=== PATIENT | female | born 1955 | race Caucasian/White ===

== ENCOUNTER 2016-06-04 06:52 | Day surgery (SDC) | payer OTHER ==
--- NOTE | 2016-06-03 18:39 | PREOPHP ---
DATE OF ADMISSION: 06/04/2016 REASON FOR HISTORY OF PRESENT ILLNESS: A 60-year-old patient is going to be admitted for diagnosti c arthroscopy of right shoulder, examination under general anesthesia, cuff repair, possible SLAP an d Bankart repair. This patient has been experiencing right shoulder pain for quite a while. Conservative treatment re sulted in limited benefit to the patient. The patient has requested surgical intervention. PAST MEDICAL HISTORY: Negative. SOCIAL HISTORY: Negative. FAMILY HISTORY: Negative. Patient's medication has been Sulindac, folic acid, and D3. Patient was also given [place] 5/325 for postoperative. PHYSICAL EXAMINATION: VITAL SIGNS: Height is 5 feet 1 inch, weighing 160 pounds. SKIN: Within normal limits. ENT: PERRLA. HEAD AND NECK: Normocephalic. Trachea midline. Bilateral symmetrical carotid pulses. No mass, no bruit, no lymphadenopathy. CARDIOVASCULAR: Normal sinus rhythm. S1, S2 normal. No murmur. No JVD. No peripheral edema. LUNGS: Clear. ABDOMEN: Slightly protuberant. No organomegaly. No mass. Bowel sounds present. GENITOURINARY: Rectal not done, not pertinent to this admission. MUSCULOSKELETAL: Head and neck unremarkable. Upper extremities symmetrical. the right shoulder. Internal rotation to L1, external rotation ____ back of the head. There is mild tenderness over the right glenohumeral joint and subacromial space. Positive impingement sign, positive [place] test. Spine and lower extremities symmetrical and normal. Right shoulder indicates full-thickness U-shaped tear in mid to anterior supraspinatus ____. Low gr kendra tear of the infraspinatus. Possible SLAP Bankart lesion. ASSESSMENT: Right shoulder rotator cuff tear, possible Bankart lesion. Treatment plan, alternatives, risks and benefits discussed. The patient understands possibility of complications such as infection, bleeding, nerve damage, vasc ular damage, possibility of deep venous thrombosis, pulmonary embolism, hypersensitivity, and even d eath. [place] result may not be obtained depending on nature of findings and also unknown factor or f actors. Formal H and P is supposed to be done by PCP. Dictated By: BRITT AKHTAR/BARBY Conf#: [id number] DID#: [id number]
[~2016-06-04] VITALS: Ht 154.9 cm; Wt 70.0 kg
[2016-06-04] VITALS (24 sets, daily range): BP systolic 93–123; BP diastolic 53–69; PULSE 75–92; RESP 10–20; Ht 154.9 cm; Wt 70.0 kg
[2016-06-04] MEDS ORDERED: PROPOFOL 20 ML ONE (08:48)
[2016-06-04] MEDS ORDERED: ROCURONIUM 50 MG INJ ONE (08:48)
[2016-06-04] MEDS ORDERED: MIDAZOLAM 1 MG/ML 2 ML INJ ONE (08:48)
[2016-06-04] MEDS ORDERED: NEOSTIGMINE 3 MG/3 ML SYRINGE ONE (08:48)
[2016-06-04] MEDS ORDERED: FENTAnyl 50 MCG/ML VIAL ONE (08:48)
[2016-06-04] MEDS ORDERED: LIDOCAINE 2% (SDV) 5 ML INJ ONE (08:48)
[2016-06-04] MEDS ORDERED: GLYCOPYRROLATE 0.4 MG INJ ONE (08:48)
[2016-06-04] MEDS ORDERED: ROPIVACAINE 0.5 % 30 ML VIAL ONE (08:49)
[2016-06-04] MEDS ORDERED: DEXAMETHASONE 4 MG/ML 1 ML INJ ONE (08:49)
[2016-06-04] MEDS ORDERED: ONDANSETRON 4 MG INJ ONE (08:49)
[2016-06-04] MEDS ORDERED: SUCCINYLCHOLINE CHLORIDE 100 MG/5 ML SYG IV ONE (08:50)
[2016-06-04] MEDS ORDERED: morphine SULFATE/PF (10 MG/10 ML) INJ ONE (13:02)
[2016-06-04] MEDS ORDERED: EPINEPHrine 1 MG/ML 30 ML INJ ONE (13:02)
[2016-06-04] MEDS ORDERED: CEFAZOLIN 1 GM INJ ONE (14:12)
[2016-06-04] MEDS ORDERED: FENTAnyl 50 MCG/ML VIAL IV PRN (14:30)
[2016-06-04] MEDS ORDERED: morphine (1 MG/ML) 10ML SYRINGE IV PRN ×3 (14:30)
[2016-06-04] MEDS ORDERED: ONDANSETRON 4 MG INJ IV PRN ×2 (14:30→16:30)
[2016-06-04] MEDS ORDERED: LABETALOL HCL 20MG INJ IV PRN (14:30)
[2016-06-04] MEDS ORDERED: MEPERIDINE 25 MG INJ IV PRN (14:30)
[2016-06-04] MEDS ORDERED: EPHEDrine SULFATE 50 MG/5 ML SYG IV PRN (14:30)
[2016-06-04] MEDS ORDERED: MIDAZOLAM 1 MG/ML 2 ML INJ IV PRN (14:30)
[2016-06-04] MEDS ORDERED: hydrALAzine 20 MG INJ IV PRN (14:30)
[2016-06-04] MEDS ORDERED: OXYCODONE/ACETAMINOPHEN (5/325) TAB PO PRN ×3 (14:30→16:30)
[2016-06-04] MEDS ORDERED: HYDROmorphONE (0.2 MG/ML) 10ML SYG IV PRN ×3 (14:30)
[2016-06-04] MEDS ORDERED: DIPHENHYDRAMINE 50 MG INJ IV PRN (14:30)
[2016-06-04] MEDS ORDERED: ATROPINE 1 MG/10 ML SYRINGE IV PRN (14:30)
[2016-06-04] MEDS ORDERED: NALOXONE (0.4 MG/ML) INJ ONE (16:17)
[2016-06-04] MEDS ORDERED: HYDROCODONE/APAP (5/325) TAB PO PRN (16:30)
[2016-06-04] MEDS ORDERED: ACETAMINOPHEN 500 MG TAB PO PRN (16:30)
[2016-06-04] MEDS: FENTAnyl 50 MCG/ML VIAL IV PRN ×2 (16:53→17:04)
--- NOTE | 2016-06-05 08:13 | OPR ---
DATE OF OPERATION: 06/04/2016 PREOPERATIVE DIAGNOSIS: SLAP lesion, Bankart lesion and rotator cuff tear of right shoulder. POSTOPERATIVE DIAGNOSIS: Anterior instability and type 3 SLAP lesion and a massive rotator cuff tea r including supraspinatus, infraspinatus and part of teres minor. OPERATION PERFORMED: Diagnostic arthroscopy, examination under general anesthesia, Bankart repair, SLAP repair and trimming of the superior and anterior labrum, and massive rotator cuff repair using Arthrex PushLock and SwiveLock. SURGEON: Britt Mora MD FUR BLOWER: Sirisha BLEEDING: Minimal. COMPLICATIONS: None. OPERATIVE PROCEDURE: The patient was transferred to the operating room and placed on the table in s upine position. General anesthesia was induced and Ancef was given IV and then a shoulder block was given by the anesthesiologist. The patient was put on left decubitus position. Axillary roll appl ied. Bony areas were padded. Beanbag was deflated. Neck was flexed right laterally to prevent bra chial plexus pull during the procedure. During the procedure, we used Arthrex shoulder narayanan, tota l of 10 pounds in subacromial space, total of 10 pounds in glenohumeral joint. Right shoulder was p repped and draped in the routine fashion. Landmarks were marked. Through a posterior portal, glenohumeral joint was entered. Anterolateral portal was established. Examination under general anesthesia with the scope inside the shoulder, indicated 40% to 45% anteri or instability. There was redundancy of the capsule. Biceps tendon indicated a type 3 SLAP lesion and there was a lot of vascularity in the 2 o'clock position and superior labrum including the bicep s. There was a considerable amount of fraying of the inner margin of the superior labrum of the bic eps attachment. Mild synovitis was present. Articular surface indicated fibrillation anteriorly, o therwise was okay. Rotator cuff showed a tear in the supraspinatus, part of the infraspinatus and p art of teres minor. We used a 3.5 PushLock, SutureLasso and FiberStick. We tighten the capsule and incorporated into posterior part of the labrum and stable fixation was obtained. There was no furt her instability checking again under anesthesia. Trimming of the anterior labrum, superior labrum w as done with a shaver and Arthrocare Bovie. We used again SutureLasso, FiberStick and PushLock to r epair the superior labrum at its normal attachment since it was sagging into the joint on the bleedi ng surface and stable fixation was obtained on the bleeding surface. Shoulder was evacuated from de bris with copious amounts of saline irrigation. We paid attention to subacromial space through a posterior portal and lateral portal. A standard la teral portal was established and there was type 3 acromion present. Formal acromioplasty was done a nd synovectomy was performed. There was massive rotator cuff tear including supraspinatus, infraspi natus and part of teres minor. Therefore, we used the Scorpion and sutures were placed in and abras ion of the footprint was done. Because the bone was rather soft, we used 4.5, we used 3.8 drill and the same thing we used for PushLock, smaller one size, smaller drill to be able to grab the anchor. The 4 sutures were delivered to 4.5 SwiveLock and were inserted and stable fixation was obta ined and footprint was completely covered and is watertight. Excess sutures were cut. Repair of th e rotator cuff was done on a bleeding surface. Duramorph 10 mg was mixed with 20 mL of injectable saline. Half was injected into the shoulder join t and half in the subacromial space. The 2 lateral portals which were used for massive rotator cuff and also 1 anterior posterior were closed with skin memo. Sterile dressing was applied. Proced ure was terminated. Shoulder immobilizer was placed on. General anesthesia was stopped. The patie nt was taken to recovery in good and stable condition Dictated By: BRITT AKHTAR/BARBY Conf#: [id number] DID#: [id number]
== END 2016-06-04 21:00 | disposition home or self-care (01) ==
LOC: SDS 06:52
PROVIDERS: ATTEND Internal Medicine Endocrinology, Diabetes & Metabolism
DX: M75.101 Unspecified rotator cuff tear or rupture of right shoulder, not specified as traumatic (principal); S43.431D Superior glenoid labrum lesion of right shoulder, subsequent encounter; X58.XXXD Exposure to other specified factors, subsequent encounter
CPT/HCPCS: 29807; 29827; C1713; J0171; J0690; J1100; J2250; J2274; J2310; J2405; J2710; J2795; J3010; Z7512; Z7610; J0330

== ENCOUNTER 2016-06-06 02:38 | Emergency (ER) | payer OTHER ==
[~2016-06-06] VITALS: Ht 154.9 cm; Wt 70.5 kg
[2016-06-06 02:42] VITALS: Ht 154.9 cm; Wt 70.5 kg
[2016-06-06] MEDS ORDERED: ONDANSETRON 4 MG INJ IV STA (03:10)
[2016-06-06] MEDS ORDERED: SOD CHLORIDE 0.9% 1,000 ML IV STA (03:10)
[2016-06-06 03:51] LABS: ADD SCAN DIFF NO
[2016-06-06 04:03] LABS: CHLORIDE 107 mmol/L (97-110); SODIUM 140 mmol/L (135-144)
[2016-06-06 04:04] LABS: POTASSIUM 3.9 mmol/L (3.5-5.1)
[2016-06-06 04:06] LABS: CREATININE 0.63 mg/dl (0.44-1.00)
[2016-06-06 04:07] LABS: ANION GAP 13 (8-16); BLOOD UREA NITROGEN 17 mg/dl (7-20); CALCIUM 7.5 mg/dl (8.4-10.2); CARBON DIOXIDE 24 mmol/L (21-31); GLUCOSE 102 mg/dl (70-220)
[2016-06-06 04:31] LABS: BASOPHILS % 0.2 % (0.0-2.0); EOSINOPHILS # 0.1 10^3/ul (0.0-0.5); EOSINOPHILS % 0.5 % (0.0-7.0); HEMATOCRIT 30.4 % (37.0-47.0); HEMOGLOBIN 10.1 g/dl (12.0-16.0); LYMPHOCYTES % 32.5 % (15.0-51.0); MEAN CORPUSCULAR HEMOGLOBIN 32.6 pg (29.0-33.0); MEAN CORPUSCULAR HGB CONC 33.2 g/dl (32.0-37.0); MEAN CORPUSCULAR VOLUME 98.1 fl (82.0-101.0); MEAN PLATELET VOLUME 9.4 fl (7.4-10.4); MONOCYTE # 0.7 10^3/ul (0.3-0.9); MONOCYTES % 8.1 % (0.0-11.0); NEUTROPHIL # 5.3 10^3/ul (1.6-7.5); NEUTROPHILS % 58.5 % (39.0-77.0); PLATELET COUNT 178 10^3/UL (140-415); RED CELL DISTRIBUTION WIDTH 13.2 % (11.5-14.5); WHITE BLOOD COUNT 9.1 10^3/ul (4.8-10.8)
[2016-06-06 04:41] LABS: TROPONIN-I < 0.012 ng/ml (0.00-0.12)
[2016-06-06 05:48] VITALS: BP 104/69; PULSE 68; RESP 19
--- NOTE | 2016-06-21 13:11 | ERD ---
ER Documentation Chief Complaint Date/Time DATE: 06/06/16 TIME: 02:42 Chief Complaint Rt shoulder severe pain s/p shoulder sx last Thursday,dizziness HPI 60 year old female BIBA with complaints of lightheadedness. Patient had right shoulder surgery 06/04/16 and has been taking prescribed narcotics. Per her family , she has not been drinking much water so she won't have to stand up and go to the restroom. Today after taking her medication, she felt very lightheaded. No associated fall, chest pain, SOB, fever, chills, dysuria, leg swelling, cough or headache. No focal weakness or numbness. Currently she feels a little better , but still feels lightheaded. ROS All systems reviewed and are negative except as per history of present illness. Allergies Allergies: Coded Allergies: No Known Allergy (Unverified , 06/04/16) PMhx/Soc History of Surgery: Yes (TUBAL LIGATION 1994) Anesthesia Reaction: No Hx Neurological Disorder: No Hx Respiratory Disorders: No Hx Cardiac Disorders: No Hx Psychiatric Problems: No Hx Miscellaneous Medical Probl: No Hx Alcohol Use: No Hx Substance Use: No Hx Tobacco Use: No Smoking Status: Unknown if ever smoked FmHx Family History: diabetes, No coronary disease Physical Exam Vitals Temp: 98.3F Pulse:60 BP:99/54 RR:18 O2: 95% RA Physical Exam Const: Mild distress secondary to pain, nontoxic Head: Atraumatic Eyes: Normal Conjunctiva. Pupils constricted. PERRL. EOMI. no nystagmus ENT: Dry oral mucosa Neck: Full range of motion. No meningismus. Resp: Clear to auscultation bilaterally Cardio: Regular rate and rhythm, no murmurs. 2+ distal pulses Abd: Soft, non tender, non distended. Normal bowel sounds Skin: No petechiae or rashes Back: No midline or flank tenderness Ext: No cyanosis, or edema. No extremity swelling, tenderness, or discoloration. Right arm in sling. Surgical wound with dressing. Wound appears to be healing well without drainage or other signs of infection. Neur: Awake and alert and oriented x 3. greenskeeper laborer intact. Strength and sensations intact. Normal speech. Psych: Normal Mood and Affect Results 24 hrs Laboratory Tests Test 06/06/16 03:19 06/06/16 03:37 Bedside Glucose 108mg/dL Albumin 3.1g/dl Anion Gap 13 Basophils # 0.010^3/ul Basophils % 0.2% Blood Urea Nitrogen 17mg/dl Calcium Level 7.5mg/dl Carbon Dioxide Level 24mmol/L Chloride Level 107mmol/L Creatinine 0.63mg/dl Eosinophils # 0.110^3/ul Eosinophils % 0.5% Glucose Level 102mg/dl Hematocrit 30.4% Hemoglobin 10.1g/dl Lymphocytes # 3.010^3/ul Lymphocytes % 32.5% Mean Corpuscular Hemoglobin 32.6pg Mean Corpuscular Hemoglobin Concent 33.2g/dl Mean Corpuscular Volume 98.1fl Mean Platelet Volume 9.4fl Monocytes # 0.710^3/ul Monocytes % 8.1% Neutrophils # 5.310^3/ul Neutrophils % 58.5% Nucleated Red Blood Cells # 0.010^3/ul Nucleated Red Blood Cells % 0.0/100WBC Platelet Count 06077^3/UL Potassium Level 3.9mmol/L Red Blood Count 3.1010^6/ul Red Cell Distribution Width 13.2% Sodium Level 140mmol/L Troponin I < 0.012ng/ml White Blood Count 9.110^3/ul Current Medications Medications (Trade) Dose Ordered Sig/Ulises Route PRN Reason Start Time Stop Time Status Last Admin Dose Admin Sodium Chloride (NS) 1,000 ml @ 1,000 mls/hr Q1H STAT IV 06/06/16 03:10 06/06/16 04:09 DC 06/06/16 03:38 Ondansetron HCl (Zofran Inj) 4 mg ONCE STAT IV 06/06/16 03:10 06/06/16 03:12 DC 06/06/16 04:00 Procedures/MDM EKG: Normal Sinus rhythm Normal Intervals No changes consistent with acute ischemia or arrhythmia MDM: The patients vitals are within normal limits and labs are unremarkable other than mild anemia. The ECG did not show any concerning abnormalities. I have a low suspicion for an arrhythmia, acute coronary syndrome, dissection, PE, ischemic CVA or intracranial hemorrhage. Etiology for dizziness is most likely aa side effect of the narcotics she is taking in addition to dehydration. After IV hydration, the patient's symptoms have stabilized while in the department and are suitable for outpatient follow up. I advised follow up with primary care physician in 1-2 days. Return precautions were discussed at bedside with patient and her family. Departure Diagnosis: Primary Impression: Near syncope Condition: Stable Patient Instructions: Near Syncope, Vasovagal Referrals: ALANA TRAN MD (PCP) Additional Instructions: Return to the emergency room for any worsening symptoms. Follow-up with your orthopedist as scheduled. CARLOS ALBERTO HOLLINGSWORTH MD Jun 21, 2016 13:09
== END 2016-06-06 06:03 | disposition home or self-care (01) ==
LOC: E/R 02:38
DX: R55 Syncope and collapse (principal)
CPT/HCPCS: 36415; 80048; 82040; 82962; 84484; 85025; 93005; 96374; J2405; J7030; Z7502

== ENCOUNTER 2016-10-25 23:37 | Emergency (ER) | payer OTHER ==
[~2016-10-25] VITALS: Ht 154.9 cm; Wt 70.0 kg
[2016-10-25 23:44] VITALS: Ht 154.9 cm; Wt 70.0 kg
[2016-10-26] MEDS ORDERED: ONDANSETRON (ODT) 4 MG TAB ODT STA (00:44)
[2016-10-26] MEDS ORDERED: HYDROCODONE/APAP (5/325) TAB PO ONE (01:00)
--- NOTE | 2016-10-26 01:31 | RADRPT ---
PROCEDURE: CT Brain without contrast. CLINICAL INDICATION: Trauma. Pain. . TECHNIQUE: Serial axial computed tomographic images of the brain was performed on a CT scanner fro m the skull base through the vertex without contrast. Exam CTDlvol = 45 mGy and DLP = 720 mGy-cm. One of the following 3 dose reduction techniques were used: Automated exposure control; adjustment of the mA and/or kV according to patient size; or use of iterative reconstruction technique. COMPARISON: None available. FINDINGS: There is no fracture. The ventricles and sulci are normal in size and configuration. There is no m idline shift. There are no focal parenchymal abnormalities. There is no acute stroke. No acute in tracranial hemorrhage or abnormal extra-axial fluid collection. Visualized paranasal sinuses are c lear. IMPRESSION: 1. No acute post-traumatic abnormality. RPTAT: HMVK .Daniel Rogers MD, Date Time Electronically viewed and signed by .Daniel Rogers MD, MD on 10/26/2016 01:31 .K/
--- NOTE | 2016-10-26 01:38 | RADRPT ---
PROCEDURE: Left knee. CLINICAL INDICATION: Pain. TECHNIQUE: Three views including AP, lateral and oblique views of the left knee were obtained. T he images reviewed on a PACS workstation. COMPARISON: None. FINDINGS: There is no fracture, dislocation or bone destruction. There is no significant joint space narrowin g or effusion. Bone mineralization is within normal limits. There is no radiopaque foreign body or abnormal calcification. IMPRESSION: No evidence of fracture. .Rafiq Jensen MD, Date Time Electronically viewed and signed by .Rafiq Jensen MD, on 10/26/2016 01:38 .T/
--- NOTE | 2016-10-26 01:38 | RADRPT ---
PROCEDURE: Left wrist. CLINICAL INDICATION: Pain. TECHNIQUE: Three views including PA, lateral and oblique views were performed. COMPARISON: None. FINDINGS: There is no fracture, dislocation or bone destruction. The joint spaces are within normal limits. Bone mineralization is mildly decreased. There is no radiopaque foreign body or abnormal calcificat ion. IMPRESSION: No evidence of fracture. .Rafiq Jensen MD, Date Time Electronically viewed and signed by .Rafiq Jensen MD, MD on 10/26/2016 01:37 .T/
--- NOTE | 2016-10-26 02:05 | ERD ---
ER Documentation Chief Complaint Date/Time DATE: 10/26/16 TIME: 01:51 Chief Complaint GLF, LANDED ON LEFT ARM, BOTTOM AND HIT BACK OF HEAD. STATES KO. +DIZZY HPI This pleasant 60-year-old female brought into emergency department today by daughter after mechanical slip and fall at work. 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 Patient reports headache and a palpable "bump" on the back of her skull. Pain is 8/10 without nausea or vision change. Patient did not lose consciousness. Patient also reports the left palmar side of her hand distal thumb is tender to palpation, patient has third complaint of left knee pain. Patient denies any cardiac history, any history of arrhythmia, denies palpitations, shortness of breath, chest pain. ROS All systems reviewed and are negative except as per history of present illness. Medications Home Meds Active Scripts Hydrocodone/Acetaminophen ([place] 5-325 Tablet) 1 Each Tablet, 1 TAB PO Q6H Y for PAIN, #7 TAB Prov:FRANSISCO,MUKESH 10/26/16 Allergies Allergies: Coded Allergies: No Known Allergy (Unverified , 10/25/16) PMhx/Soc Medical and Surgical Hx: pt denies Medical Hx History of Surgery: Yes (TUBAL LIGATION 1994, R SHOULDER 07/2016) Anesthesia Reaction: No Hx Neurological Disorder: No Hx Respiratory Disorders: No Hx Cardiac Disorders: No Hx Psychiatric Problems: No Hx Miscellaneous Medical Probl: No Hx Alcohol Use: No Hx Substance Use: No Hx Tobacco Use: No Smoking Status: Never smoker Physical Exam Vitals Vitals stable, triage notes reviewed Physical Exam Const: Well-nourished well-appearing well-hydrated drowsy female in no acute distress Head: Occipital hematoma palpable Eyes: Normal Conjunctiva, PERRLA, EOMI, no raccoon eyes ENT: Bilateral tympanic membranes translucent no blood behind tympanic membranes, no kaye sign Neck: Full range of motion. No cervical point tenderness, paraspinal tenderness Resp: Chest rise and fall symmetrically no respiratory distress Cardio: Regular rate and rhythm, no murmurs Abd: Skin: No visible left palmar ecchymosis or laceration, left knee ecchymosis on patella Back: No midline or flank tenderness Ext: Lower Extremity left knee Skin: No laceration, or bony deformity Compartments: Soft Motor: Full active range of motion hip/knee with flexion and knee extension/no ankle or foot abnormality Sensation: Intact to light touch all surfaces. Bones: Patellar ecchymosis and tenderness no posterior knee tenderness, negative anterior drawer test Joints: No effusion or laxity Pulses/Perfusion: 2+ DP, Capillary refill < 2 seconds Hand -left Skin: No laceration, or evidence of external trauma Compartments: Soft Sensation: intact shoulder/pinky/middle finger/thumb web space Bones: Palmar side proximal thumb tenderness at base of carpals Snuffbox: Nontender Joints: No effusion Wrist: Flex/Ext: Normal Uln/Radial deviation: Normal Pron/Supination Normal Thumb: Flex/Ext: Normal Opposition: Normal Thumbs up: Normal Neur: Speech is clear, pupils equal round and reactive to light and accommodation, sensation to light touch is intact bilaterally. There is no pronator drift. Finger to nose test is intact bilaterally. Vp Hr Diversity strength is 5/ 5. Flexion and extension is intact bilaterally Psych: Normal Mood and Affect Results 24 hrs Current Medications Medications (Trade) Dose Ordered Sig/Ulises Route PRN Reason Start Time Stop Time Status Last Admin Dose Admin Ondansetron HCl (Zofran Odt) 4 mg ONCE STAT ODT 10/26/16 00:44 10/26/16 00:49 DC 10/26/16 01:38 Acetaminophen/ Hydrocodone Bitart ([place] (5/325)) 1 tab ONCE ONCE PO 10/26/16 01:00 10/26/16 01:01 DC 10/26/16 01:39 Procedures/MDM EKG: Rate/Rhythm: Sinus bradycardia at a ventricular rate of 59 bpm QRS, ST, T-waves: No changes consistent w/ acute ischemia Impression: No evidence of ischemia or arrhythmia PROCEDURE: CT Brain without contrast. CLINICAL INDICATION: Trauma. Pain. . TECHNIQUE: Serial axial computed tomographic images of the brain was performed on a CT scanner from the skull base through the vertex without contrast. Exam CTDlvol = 45 mGy and DLP = 720 mGy-cm. One of the following 3 dose reduction techniques were used: Automated exposure control; adjustment of the mA and/or kV according to patient size; or use of iterative reconstruction technique. COMPARISON: None available. FINDINGS: There is no fracture. The ventricles and sulci are normal in size and configuration. There is no midline shift. There are no focal parenchymal abnormalities. There is no acute stroke. No acute intracranial hemorrhage or abnormal extra-axial fluid collection. Visualized paranasal sinuses are clear. IMPRESSION: 1. No acute post-traumatic abnormality. Electronically viewed and signed by .Daniel Rogers MD, on 10/26/2016 01:31 PROCEDURE: Left knee. CLINICAL INDICATION: Pain. TECHNIQUE: Three views including AP, lateral and oblique views of the left knee were obtained. The images reviewed on a PACS workstation. COMPARISON: None. FINDINGS: There is no fracture, dislocation or bone destruction. There is no significant joint space narrowing or effusion. Bone mineralization is within normal limits. There is no radiopaque foreign body or abnormal calcification. IMPRESSION: No evidence of fracture. Electronically viewed and signed by .Rafiq Jensen MD, on 10/26/2016 01:38 CC: FRANSISCO,MUKESH PROCEDURE: Left wrist. CLINICAL INDICATION: Pain. TECHNIQUE: Three views including PA, lateral and oblique views were performed. COMPARISON: None. FINDINGS: There is no fracture, dislocation or bone destruction. The joint spaces are within normal limits. Bone mineralization is mildly decreased. There is no radiopaque foreign body or abnormal calcification. IMPRESSION: No evidence of fracture. Electronically viewed and signed by .Rafiq Jensen MD, on 10/26/2016 01:37 This pleasant 60-year-old female presents to emergency department after mechanical slip and fall at work. 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 Patient reports headache and a palpable "bump" on the back of her skull. Denies any visual change or seizure, denies neck pain, or back pain, nausea or vomiting. Patient has poor recall of events abnormal 5 simple word recall. CAT scan is performed to exclude intracranial bleed or skull fracture. Subdural or epidural hematoma. CAT scan results document: The ventricles and sulci are normal in size and configuration. There is no midline shift. There are no focal parenchymal abnormalities. There is no acute stroke. No acute intracranial hemorrhage or abnormal extra-axial fluid collection. Visualized paranasal sinuses are clear. ECG obtained to rule out any cardiovascular arrhythmia. Patient in normal sinus rhythm, sinus tachycardia, R-on-T phenomenon, V. fib, atrial fib, not suspected because of dizziness. Patient's vitals are stable. Patient also reports the left palmar side of her hand distal thumb is tender to palpation flexor tendon strength normal. Snuffbox tenderness negative, and navicular or scaphoid fracture is not suspected. X-ray findings document no fracture. Tendon injury is not suspected, there is no obvious physical injury, vascular injury, compartment syndrome not suspected. X-ray obtained with normal anatomy, patient has third complaint of left knee pain. Patellar dislocation, knee dislocation, tibial plateau fracture is not suspected x-ray obtained reports normal anatomy without fracture, dislocation or subluxation. Patient denies any cardiac history, any history of arrhythmia, denies palpitations, shortness of breath, chest pain. Plan to discharge patient home with pain medication, strict return to emergency room precautions return for nausea, vomiting, change in behavior or vision. Chest pain, shortness of breath or dizziness not resolving. Rest, ice, drink plenty of fluids and follow -up with primary care physician in 48 hours. I feel the patient is stable for discharge at this time. I have discussed results, examination findings, the treatment plan with the patient and family present prior to discharge. Indications for emergent reevaluation, side effects of medication were also discussed. All questions were answered. Patient verbalizes understanding and agrees with plan of care. Departure Diagnosis: Primary Impression: Fall with no significant injury Encounter type: initial encounter Qualified Code: W19.XXXA - Fall with no significant injury, initial encounter Additional Impression: Hematoma of occipital surface of head Encounter type: initial encounter Qualified Code: S00.83XA - Hematoma of occipital surface of head, initial encounter Condition: Good Patient Instructions: Fall Prevention, HEAD INJURY, No Wake-Up (Adult) Additional Instructions: Thank you for for coming to [facility] for your care today. Please ask your nurse or provider if you have questions about your care today and do not leave until all your questions have been answered. Please use any medications given as directed and follow-up with your doctor (or the doctor you were referred to) in the next 2-3 days. If you do not have a primary care doctor you may follow up at the [facility] (listed below). You may also use motrin and tylenol as needed for fever and/or pain unless instructed otherwise by your provider or nurse. Indications for more urgent follow-up have been discussed, but you may return to the Emergency Department at ANY time for any worrisome or worsening symptoms. If you have abdominal pain, please know that no test or exam you received is perfect and you should follow up within 8 hours for continued pain. If you had any imaging studies today, such as an X-Ray or CT Scan, these studies will be reviewed later by a radiologist. You will be called if there are important findings that were not identified today, so make sure the contact information you provided at registration is correct. If you received any narcotic pain control medicine today, such as Vicodin, Morphine or Dilaudid, your coordination and judgment may be affected for a number of hours. Please do not drive or operate heavy machinery, and you may want someone to assist you at home. If you were given a prescription for narcotic medication, be aware that it is very addictive- use sparingly and only if necessary. MUKESH MOODY Oct 26, 2016 02:01
[2016-10-26] MEDS ORDERED: HYDR-906 PO (02:07)
[2016-10-26 02:23] VITALS: BP 109/68; PULSE 84; RESP 18
== END 2016-10-26 02:25 | disposition home or self-care (01) ==
LOC: FTE 23:37
DX: S00.83XA Contusion of other part of head, initial encounter (principal); R94.31 Abnormal electrocardiogram [ECG] [EKG]; W01.190A Fall on same level from slipping, tripping and stumbling with subsequent striking against furniture, initial encounter; Y92.89 Other specified places as the place of occurrence of the external cause
CPT/HCPCS: 70450; 73110; 73562; 93005; Z7610

== ENCOUNTER 2017-06-14 01:24 | Emergency (ER) | END 2017-06-14 08:35 | disposition home or self-care (01) ==

== ENCOUNTER 2017-07-15 03:48 | Emergency (ER) | END 2017-07-15 08:49 | disposition home or self-care (01) ==

== ENCOUNTER 2017-09-03 22:24 | Emergency (ER) | END 2017-09-04 04:49 | disposition home or self-care (01) ==